=== PATIENT | male | born 2000 | race Caucasian/White ===

== ENCOUNTER 2020-06-27 15:48 | Emergency (ER) | payer OTHER, SELFPAY ==
--- NOTE | ~2020-06-27 | XR_ITS ---
EXAMINATION: XR ribs LT 2V w CXR 2V INDICATION: Left chest pain, initial encounter TECHNIQUE: PA and lateral views of the chest and 3 views of the left ribs were obtained. COMPARISON: None. FINDINGS: There are acute posterior fractures of the left fourth through seventh ribs. There also vladimir ear to be fractures at the lateral aspects of the left sixth and seventh ribs. The lungs are free of acute opacities. There is no pleural effusion or pneumothorax. The cardiomediastinal silhouette is no rmal. No additional osseous abnormality is identified. IMPRESSION: 1. Acute fractures of the left fourth through seventh ribs with segmental fractures of the sixth and seventh ribs. Reviewed, dictated and finalized at location A. IMPRESSION: 1. Acute fractures of the left fourth through seventh ribs with segmental fract ures of the sixth and seventh ribs.
[2020-06-27 15:56] VITALS: BP 157/81; PULSE 93; RESP 16; TEMP 37.8; O2SAT 99
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
== END 2020-06-27 17:08 | disposition short-term general hospital (02) ==
PROVIDERS: Emergency Provider Nurse Practitioner Family; PCP Physician Assistant
DX: S22.42XA Multiple fractures of ribs, left side, initial encounter for closed fracture (principal); V86.56XA Driver of dirt bike or motor/cross bike injured in nontraffic accident, initial encounter; K21.9 Gastro-esophageal reflux disease without esophagitis
CPT/HCPCS: 71046; 71100; 99213; G0463